=== PATIENT | female | born 1980 | race Two or more races ===

== ENCOUNTER 2020-01-22 09:25 | Outpatient (CLI) | payer OTHER ==
[~2020-01-22 09:25] MED LIST: IBUPROFEN100 MG/51 PO; NORFLEX100 MG PO; TORADOL10 MG PO
== END 2020-01-22 09:53 | disposition home or self-care (01) ==
LOC: TOM 09:25
PROVIDERS: ATTEND Internal Medicine Gastroenterology
DX: K56.600 Partial intestinal obstruction, unspecified as to cause (principal); K56.1 Intussusception; K92.2 Gastrointestinal hemorrhage, unspecified